=== PATIENT | female | born 1985 | race Caucasian/White ===

== ENCOUNTER 2023-04-20 22:39 | Inpatient (IN) | payer BC ==
[~2023-04-20] VITALS: Ht 154.9 cm; Wt 53.1 kg
[2023-04-20 23:24] LABS: COVID AG,FIA SOURCE NASAL SWAB
[2023-04-20 23:28] LABS: BASOPHILS % (AUTO) 0.8 % (0.0-2.0); EOSINOPHILS % (AUTO) 0.3 % (1.0-6.0); HEMOGLOBIN 13.2 g/dL (12.0-16.0); LYMPHOCYTES # (AUTO) 0.9 K/uL (1.0-4.8); LYMPHOCYTES % (AUTO) 16.1 % (22.0-44.0); MEAN CORPUSCULAR HEMOGLOBIN 32.6 pg (26.0-34.0); MEAN CORPUSCULAR HGB CONC 33.7 G/dL (31.0-37.0); MEAN CORPUSCULAR VOLUME 97 fL (80-100); MONOCYTES # (AUTO) 0.2 K/uL (0.1-1.0); MONOCYTES % (AUTO) 3.2 % (2.0-9.0); NEUTROPHILS # (AUTO) 4.6 K/uL (1.8-7.7); NEUTROPHILS % (AUTO) 79.6 % (40.0-70.0); PLATELET COUNT (AUTO) 309 K/uL (150-450); RED BLOOD CELL COUNT(AUTO) 4.05 MIL/uL (4.00-5.20); RED CELL DISTRIBUTION WIDTH 12.6 % (11.5-14.5); WHITE BLOOD COUNT (AUTO) 5.8 K/uL (4.5-11.0)
[2023-04-20 23:29] LABS: SARS-COV2 (COVID) ANTIGEN,FIA Negative (Negative)
[2023-04-20 23:35] LABS: ANION GAP 13 mmol/L (8-16); CALCIUM, TOTAL 9.3 mg/dL (8.8-10.5); CARBON DIOXIDE 27 mmol/L (22-29); CHLORIDE 104 mmol/L (98-107); GLOMERULAR FILTR. RATE CALC > 60 mL/min (>60); GLUCOSE,RANDOM 108 mg/dL (70-110); POTASSIUM 4.4 mmol/L (3.5-5.1); SODIUM SERUM 144 mmol/L (136-145); UREA NITROGEN, BLOOD 7 mg/dL (7-18)
[2023-04-20 23:40] LABS: ALANINE AMINOTRANSFERASE 23 U/L (12-78); ALBUMIN 4.6 g/dL (3.4-5.0); ALKALINE PHOSPHATASE 54 U/L (46-116); ASPARTATE AMINOTRANSFERASE 17 U/L (15-37); BILIRUBIN,TOTAL 0.2 mg/dL (0.1-1.0); TOTAL PROTEIN, SERUM 7.8 g/dL (6.4-8.2)
[2023-04-20 23:49] LABS: ALCOHOL, BLOOD (SERUM) 157 mg/dL (0-10)
[2023-04-21] MEDS: LORazepam 2 MG TABLET PO ONE (00:42)
[2023-04-21] MEDS ORDERED: HALOPERIDOL 5 MG TABLET PO PRN (01:00)
[2023-04-21] MEDS ORDERED: ZOLPIDEM TARTRATE 10 MG TABLET PO PRN (01:00)
[2023-04-21 01:33] LABS: APPEARANCE,URINE CLEAR (CLEAR); BILIRUBIN,URINE NEGATIVE (NEGATIVE); COLOR,URINE LIGHT YELLOW (YELLOW); GLUCOSE, URINE (UA) NEGATIVE (NEGATIVE); KETONES,URINE NEGATIVE (NEGATIVE); LEUKOCYTE ESTERASE ,URINE MODERATE (NEGATIVE); NITRATE,URINE POSITIVE (NEGATIVE); OCCULT BLOOD,URINE NEGATIVE (NEGATIVE); PH,URINE 6.5 (5.0-8.0); PH,URINE DRUG SCREEN 6.5 (5.0-8.0); PROTEIN,URINE NEGATIVE (NEGATIVE); SPECIFIC GRAVITIY, URINE 1.009 (1.003-1.030); UROBILINOGEN,URINE <=1.0 mg/dL (<=1.0)
[2023-04-21 01:38] LABS: ALCOHOL, URINE DRUG SCREEN POSITIVE (NEGATIVE); AMPHET/METH SCREEN,URINE NEGATIVE (NEGATIVE); BARBITURATE SCREEN, URINE NEGATIVE (NEGATIVE); BENZODIAZEPINES SCREEN,URINE NEGATIVE (NEGATIVE); CANNABINOID SCREEN,URINE POSITIVE (NEGATIVE); COCAINE SCREEN,URINE NEGATIVE (NEGATIVE); METHADONE SCREEN, URINE NEGATIVE (NEGATIVE); OPIATE SCREEN,URINE NEGATIVE (NEGATIVE); PHENCYCLIDINE SCREEN,URINE NEGATIVE (NEGATIVE)
[2023-04-21 01:49] LABS: RBC,URINE 0-2 /HPF (0-2)
[2023-04-21 02:11] LABS: BACTERIA,URINE Few /HPF (None Seen); SQUAMOUS EPITHELIAL CELL,UR Few /LPF (None Seen)
[2023-04-21 06:16] VITALS: BP 124/81; PULSE 99; RESP 18; TEMP 97.1
[2023-04-21] MEDS: BACITRACIN ZINC/POLYMYXIN B 14.2 GM OINTMENT TP ONE (08:32)
[2023-04-21 09:47] VITALS: BP 99/71; PULSE 95; RESP 16; TEMP 97.3
[2023-04-21] MEDS: LamoTRIgine 100 MG TABLET PO SCH ×2 (10:52→20:31)
[2023-04-21] MEDS: BuPROPion HCL XL 150 MG ER TABLET PO SCH (10:52)
[2023-04-21] MEDS: CEPHALEXIN MONOHYDRATE 250 MG CAPSULE PO SCH (16:35)
[2023-04-21] MEDS: LORazepam 2 MG TABLET PO PRN (16:35)
[2023-04-21 20:26] VITALS: BP 125/75; PULSE 85; RESP 18; TEMP 97.7; O2SAT 97
[2023-04-22] MEDS: LamoTRIgine 100 MG TABLET PO SCH (08:13)
[2023-04-22 09:22] VITALS: BP 108/67; PULSE 88; RESP 18; TEMP 97.8; O2SAT 98
[2023-04-22] MEDS: BACITRACIN ZINC/POLYMYXIN B 14.2 GM OINTMENT TP SCH (09:30)
[2023-04-22 21:15] VITALS: BP 104/84; PULSE 75; RESP 17; TEMP 97.3; O2SAT 99
[2023-04-23 08:20] VITALS: BP 104/83; PULSE 80; RESP 18; TEMP 98; O2SAT 99
[2023-04-23] MEDS ORDERED: BUPR-49 PO (12:54)
[2023-04-23] MEDS ORDERED: LAMO-24 PO ×2 (12:54)
[2023-04-23] MEDS ORDERED: CEPH-556 PO (13:35)
== END 2023-04-23 16:10 | disposition home or self-care (01) | DRG 885 ==
LOC: EMS 22:40 → B3A 04-21 02:25
PROVIDERS: ADMIT Psychiatry & Neurology Child & Adolescent Psychiatry; ATTEND Psychiatry & Neurology Child & Adolescent Psychiatry
PROC: 0HQEXZZ Repair Left Lower Arm Skin, External Approach (ICD-10-PCS; principal; 2023-04-21)
DX: F33.2 Major depressive disorder, recurrent severe without psychotic features (principal); N39.0 Urinary tract infection, site not specified; R45.851 Suicidal ideations; G47.00 Insomnia, unspecified; S51.812A Laceration without foreign body of left forearm, initial encounter; Z20.822 Contact with and (suspected) exposure to COVID-19; F41.9 Anxiety disorder, unspecified; X58.XXXA Exposure to other specified factors, initial encounter; Y93.89 Activity, other specified; Y92.89 Other specified places as the place of occurrence of the external cause; Y99.8 Other external cause status
CPT/HCPCS: 80053; 80307; 81001; 84703; 85025; 87086; 87186; 99285; G0480